=== PATIENT | female | born 1965 | race Caucasian/White ===

== ENCOUNTER 2019-04-28 09:45 | Day surgery (SDC) | payer OTHER ==
[~2019-04-28] VITALS: Ht 167.6 cm; Wt 78.5 kg
[~2019-04-28 09:45] MED LIST: ASPI81TA85 PO; BUPR300T34 PO; CLOP75TA2 PO; D-101000 PO; EZET10TA21 PO; METF-839 PO; METO1TAB7 PO; PANT40TA3 PO; PRAV40TA2 PO; TRAZ-163 PO; VENL150C43 PO
[2019-04-28] MEDS: NS 1,000 ML IV ONE (10:22)
[2019-04-28] MEDS ORDERED: LIDOCAINE 2% INJ 100 MG/5 ML SDV (FOR ANES.) As Ordered ONE (10:58)
[2019-04-28] MEDS ORDERED: PROPOFOL 200 MG/20 ML VIAL As Ordered ONE ×2 (10:58→11:28)
[2019-04-28] MEDS ORDERED: fentaNYL 100 MCG/2 ML INJECTION (J3010) As Ordered ONE (11:08)
--- NOTE | 2019-04-28 11:20 | ROOR ---
Patient Name: Maral White Procedure Date: 04/28/2019 11:00 AM Date of : 1965 Age: 54 Room: [facility] Gender: Female Note Status: Finalized Procedure: Upper Endoscopy + Biopsies Indications: Abnormal CT of the GI tract, Nausea, Weight loss Providers: Henri Zhu MD Referring MD: Wesley MONTELONGO, [facility] MONTELON[facility], Admin. Requesting Provider: Medicines: Monitored Anesthesia Care Complications: No immediate complications. Procedure: Pre-Anesthesia Assessment: - The heart rate, respiratory rate, oxygen saturations, blood pressure, adequacy of pulmonary ventilation, and response to care were monitored throughout the procedure. The Endoscope was introduced through the mouth, and advanced to the second part of duodenum. The upper GI endoscopy was accomplished without difficulty. The patient tolerated the procedure well. Findings: The Z-line was regular and was found 35 cm from the incisors. A small hiatal hernia was present. No other significant abnormalities were identified in a careful examination of the stomach. Biopsies were taken with a cold forceps in the gastric antrum for Helicobacter pylori testing. The exam of the duodenum was otherwise normal. Impression: - Z-line regular, 35 cm from the incisors. - Small hiatal hernia. - Biopsies were taken with a cold forceps for Helicobacter pylori testing. - The examination was otherwise normal. Recommendation: - Patient has a contact number available for emergencies. The signs and symptoms of potential delayed complications were discussed with the patient. Return to normal activities tomorrow. Written discharge instructions were provided to the patient. - Resume previous diet. - Discharge patient to home. - Follow an antireflux regimen. - Continue present medications. - Await pathology results. - Telephone GI clinic for pathology results in 1 week. - Return to referring physician. - The findings and recommendations were discussed with the patient's family. Henri Zhu MD Henri Zhu MD 04/28/2019 11:19:57 AM Electronically signed by Henri Zhu MD Number of Addenda: 0 Note Initiated On: 04/28/2019 11:00 AM Estimated Blood Loss: Estimated blood loss: none.
--- NOTE | 2019-04-28 11:43 | ROOR ---
Patient Name: Maral White Procedure Date: 04/28/2019 11:01 AM Date of : 1965 Age: 54 Room: [facility] Gender: Female Note Status: Finalized Procedure: Total Colonoscopy to Cecum + Cold Snare Polypectomy Indications: Change in bowel habits, Weight loss Providers: Henri Zhu MD Referring MD: Wesley [facility]EL[facility], [facility], [facility], Admin. Requesting Provider: Medicines: Monitored Anesthesia Care Complications: No immediate complications. Procedure: Pre-Anesthesia Assessment: - The heart rate, respiratory rate, oxygen saturations, blood pressure, adequacy of pulmonary ventilation, and response to care were monitored throughout the procedure. The Colonoscope was introduced through the anus and advanced to the cecum, identified by appendiceal orifice and ileocecal valve. The colonoscopy was performed without difficulty. The patient tolerated the procedure well. The quality of the bowel preparation was excellent. Findings: The perianal and digital rectal examinations were normal. Non-bleeding internal hemorrhoids were found during retroflexion. The hemorrhoids were small and Grade I (internal hemorrhoids that do not prolapse). Multiple sessile polyps were found in the ascending colon. The polyps were small in size. These polyps were removed with a cold snare. Resection and retrieval were complete. The exam was otherwise without abnormality on direct and retroflexion views. Impression: - Non-bleeding internal hemorrhoids. - Multiple small polyps in the ascending colon, removed with a cold snare. Resected and retrieved. - The examination was otherwise normal on direct and retroflexion views. - The exam was otherwise normal to the cecum. Recommendation: - Patient has a contact number available for emergencies. The signs and symptoms of potential delayed complications were discussed with the patient. Return to normal activities tomorrow. Written discharge instructions were provided to the patient. - High fiber diet. - Discharge patient to home. - Continue present medications. - Await pathology results. - Telephone GI clinic for pathology results in 1 week. - Repeat colonoscopy in 5 years for surveillance based on pathology results. - Return to referring physician. - The findings and recommendations were discussed with the patient's family. Henri Zhu MD Henri Zhu MD 04/28/2019 11:43:32 AM Electronically signed by Henri Zhu MD Number of Addenda: 0 Note Initiated On: 04/28/2019 11:01 AM Estimated Blood Loss: Estimated blood loss: none.
[2019-04-28 12:00] VITALS: BP 120/71
== END 2019-04-28 12:09 | disposition home or self-care (01) ==
LOC: M OPP 09:45
PROVIDERS: ATTEND Internal Medicine Gastroenterology
DX: R63.4 Abnormal weight loss (principal); R19.4 Change in bowel habit; K64.0 First degree hemorrhoids; D12.2 Benign neoplasm of ascending colon; R93.3 Abnormal findings on diagnostic imaging of other parts of digestive tract; K44.9 Diaphragmatic hernia without obstruction or gangrene; Z95.5 Presence of coronary angioplasty implant and graft; I25.2 Old myocardial infarction; I10 Essential (primary) hypertension; E78.5 Hyperlipidemia, unspecified; E11.9 Type 2 diabetes mellitus without complications; K21.9 Gastro-esophageal reflux disease without esophagitis; L30.9 Dermatitis, unspecified; F32.9 Major depressive disorder, single episode, unspecified; F12.10 Cannabis abuse, uncomplicated; Z88.8 Allergy status to other drugs, medicaments and biological substances; Z79.82 Long term (current) use of aspirin; Z79.899 Other long term (current) drug therapy; Z79.84 Long term (current) use of oral hypoglycemic drugs
CPT/HCPCS: 43239; 45385; 88305; J3010

== ENCOUNTER 2019-05-24 11:49 | Emergency (ER) | payer OTHER ==
[~2019-05-24] VITALS: Ht 167.6 cm; Wt 79.5 kg
[2019-05-24] MEDS ORDERED: ZOLP10TA2 (12:08)
[2019-05-24 12:39] LABS: BASO % 0.4 % (0.0-1.0); EOS # 0.1 10^3/uL (0.0-0.5); EOS % 1.6 % (0.0-3.0); HEMATOCRIT 41.9 % (36.0-47.0); LYMPH # 1.4 10^3/uL (1.5-5.0); LYMPH % 25.3 % (24.0-44.0); MEAN CORPUSCULAR HEMOGLOBIN 29.9 pg (27.0-33.0); MEAN CORPUSCULAR HGB CONC 33.4 g/dl (32.0-36.5); MEAN CORPUSCULAR VOLUME 89.5 fl (80.0-96.0); MONO # 0.4 10^3/uL (0.0-0.8); MONO % 6.9 % (0.0-5.0); NEUTROPHILS # 3.7 10^3/uL (1.5-8.5); NEUTROPHILS % 65.4 % (36.0-66.0); PLATELET COUNT, AUTOMATED 176 10^3/uL (150-450); RED BLOOD COUNT 4.68 10^6/uL (4.00-5.40); WHITE BLOOD COUNT 5.7 10^3/uL (4.0-10.0)
[2019-05-24] MEDS ORDERED: ONDANSETRON 4MG/2ML VIAL (J2405) IV ONE (12:45)
[2019-05-24 13:07] LABS: ALBUMIN 3.8 GM/DL (3.2-5.2); ALT/SGPT 19 U/L (12-78); AMYLASE 39 U/L (25-115); BILIRUBIN,DIRECT < 0.1 MG/DL (0.0-0.2); BILIRUBIN,TOTAL 0.3 MG/DL (0.2-1.0); BLOOD UREA NITROGEN 18 MG/DL (7-18); CALCIUM LEVEL 8.7 MG/DL (8.5-10.1); CARBON DIOXIDE LEVEL 31 MEQ/L (21-32); CHLORIDE LEVEL 108 MEQ/L (98-107); CREATININE FOR GFR 0.79 MG/DL (0.55-1.30); GLOMERULAR FILTRATION RATE > 60.0 (>51); GLUCOSE, FASTING 95 MG/DL (70-100); LIPASE 289 U/L (73-393); POTASSIUM SERUM 4.2 MEQ/L (3.5-5.1); SODIUM LEVEL 141 MEQ/L (136-145)
[2019-05-24] MEDS ORDERED: ISOVUE-370 76% 100ML VIAL (Q9967) As Ordered ONE (13:11)
--- NOTE | 2019-05-24 14:39 | REP ---
REASON FOR EXAM: Weight loss. There is a prior examination in [place], [place], as per the patient; however, this patient is being imaged through the emergency department, which necessitates immediate interpretation. If and when priors are made available for comparison, an addendum report can be made if necessary. CONTRAST: 100 mL Isovue-370. There is right hilar adenopathy. There is soft tissue density in the anterior mediastinum, which splays the anterior junction line. There are no pleural or pericardial effusions. See the abdominal and pelvic CT report for description of the imaged upper abdomen. Bone window technique throughout the exam shows the osseous structures to be within normal limits. Evaluation of the lung villarreal shows no abnormal nodules, masses, or opacities. IMPRESSION: 1. Soft tissue density in the anterior mediastinum, as described above, the etiology of which is uncertain. This appears somewhat more dense than one would normally expect for the finding to represent benign reactive thymic tissue; however, this needs to be correlated clinically with appropriate followup. 2. Right hilar adenopathy of uncertain etiology. Electronically Signed by Brandan Hood DO 05/24/2019 04:43 P
--- NOTE | 2019-05-24 14:45 | REP ---
CT ABDOMEN/PELVIS WITH IV CONTRAST: TECHNIQUE: Axial contrast enhanced images from the lung bases to the pubic symphysis using 100 mL Isovue 370 intravenous contrast material with multiplanar reformations. The liver, spleen, adrenals, pancreas, and kidneys are normal in appearance. There is no hydronephrosis bilaterally. There is mild atherosclerotic calcification of the abdominal aorta without aneurysm. No adenopathy is seen. There is no free air or free fluid. There is no bowel wall thickening. The appendix is normal. Dominant follicle of the right ovary measures 2.3 cm in diameter. The patient appears to have had a hysterectomy. Urinary bladder is not well distended and not well evaluated. There are mild degenerative changes of the spine. IMPRESSION: No acute abnormalities detected. Electronically Signed by Julián De Los Santos MD 05/26/2019 09:26 A
[2019-05-24] MEDS ORDERED: ONDA4TAB6 PO (15:08)
[2019-05-24 15:18] VITALS: BP 138/63
--- NOTE | 2019-05-25 10:02 | ECGEPIP ---
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
--- NOTE | 2019-05-26 14:20 | ED PDOC ---
Post-Departure Follow-Up urmila gay faxed formal report of ct chest for fu Dwain Lo MD May 26, 2019 14:20
== END 2019-05-24 15:25 | disposition home or self-care (01) ==
LOC: M ED 11:49
DX: J98.59 Other diseases of mediastinum, not elsewhere classified (principal); R00.1 Bradycardia, unspecified; I25.2 Old myocardial infarction; E11.9 Type 2 diabetes mellitus without complications; I10 Essential (primary) hypertension; E78.5 Hyperlipidemia, unspecified; F17.200 Nicotine dependence, unspecified, uncomplicated; F12.10 Cannabis abuse, uncomplicated; Z79.82 Long term (current) use of aspirin; Z79.899 Other long term (current) drug therapy; Z88.8 Allergy status to other drugs, medicaments and biological substances
CPT/HCPCS: 71260; 74177; 80048; 80076; 81001; 82150; 83690; 85025; 93005; 96374; 99284; J2405; Q9967

== ENCOUNTER → 2024-02-23 | Outpatient (CLI) | payer OTHER ==
[~2024-02-23] MED LIST changes: -ASPI81TA85 PO; +ASPI81TA86 PO; +BUPR-597 PO; -BUPR300T34 PO; +ONDA-282 PO; +PANT40TA29 PO; -PANT40TA3 PO; -TRAZ-163 PO; +TRAZ-257 PO; +ZOLP10TA2
== END ==
LOC: M RAD 12:32
PROVIDERS: ATTEND Physician Assistant Medical
DX: Z12.2 Encounter for screening for malignant neoplasm of respiratory organs (principal); Z87.891 Personal history of nicotine dependence; J43.2 Centrilobular emphysema; J47.9 Bronchiectasis, uncomplicated; R91.1 Solitary pulmonary nodule; I25.10 Atherosclerotic heart disease of native coronary artery without angina pectoris

== ENCOUNTER → 2025-02-23 | Outpatient (CLI) | payer OTHER ==
[~2025-02-23] MED LIST changes: -BUPR-597 PO; +BUPR-766 PO; -PRAV40TA2 PO; +PRAV40TA85 PO
== END ==
LOC: M RAD 13:28
PROVIDERS: ATTEND Physician Assistant Medical
DX: Z87.891 Personal history of nicotine dependence (principal)